=== PATIENT | female | born 1975 | race African-American/Black ===

== ENCOUNTER 2017-01-22 09:56 | Emergency (ER) | payer OTHER ==
[~2017-01-22] VITALS: Ht 161.3 cm; Wt 83.9 kg
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
== END 2017-01-22 12:54 | disposition home or self-care (01) ==
LOC: CED 09:56
DX: S16.1XXA Strain of muscle, fascia and tendon at neck level, initial encounter (principal); S00.93XA Contusion of unspecified part of head, initial encounter; I10 Essential (primary) hypertension; F17.200 Nicotine dependence, unspecified, uncomplicated; V49.40XA Driver injured in collision with unspecified motor vehicles in traffic accident, initial encounter; Y92.488 Other paved roadways as the place of occurrence of the external cause
CPT/HCPCS: 70450; 72125; 99285

== ENCOUNTER → 2017-03-22 | Outpatient (CLI) | payer OTHER ==
--- NOTE | ~2017-03-22 | MY29 ---
[facility] A Service of [facility] RADIOLOGY TEXT RESULTS PATIENT: SHAY ROJAS LOCATION: [facility] : 71 UNIT #: [id number] AGE: [address]: Cynthia Churchill MD SEX: F ORDER DR: [id number] [id number] [facility] [place], [place] [address] [id number] O MR#: [id number] Acc #: [id number] NAME: SHAY ROJAS : 1975 SEX: F STUDY DATE/TIME: 03/22/2017 14:14 UNIT: [facility] ROOM: STUDY DESCRIPTION: MY ALIYA SCREENING W/ CAD BILAT Attending Physician: Cynthia Churchill M.D. Ordering Physician: Cynthia Churchill M.D. Primary Care Physician: Cynthia Churchill M.D. MEDICAL IMAGING REPORT This report is preliminary unless electronic signature is present EXAM Bilateral digital screening mammogram with CAD, 03/22/2017. INDICATIONS 42-year-old female for routine screening. No reported problems. No personal or family history of breast cancer. No surgeries. TECHNIQUE CC and MLO views of the breasts were obtained and reviewed with an FDA approved CAD device. No comparisons. This is her baseline study. FINDINGS Breast parenchyma is composed of scattered fibroglandular densities. The pattern is symmetric. There is no dominant nodule, mass or suspicious clustered microcalcifications. Benign intramammary nodes anterior to the pectoralis muscle incidentally noted, both of which have fatty malini. IMPRESSION 1. Negative baseline screening mammogram, 1 followup recommended. Patients over the age of 40 are entered into a reminder system with target due date for the next mammogram. A result letter will also be sent to the patient. BIRADS: 1 Negative. Dictated by... Oscar Bone M.D. THIS IS AN ELECTRONICALLY VERIFIED REPORT Oscar Bone M.D. at 03/23/2017 8:29 AM XUAN/camila [facility] A Service of [facility] RADIOLOGY TEXT RESULTS PATIENT: SHAY ROJAS LOCATION: [facility] : 71 UNIT #: [id number] AGE: [address]: Cynthia Churchill MD SEX: F ORDER DR: TD: 03/23/2017 07:08 JOB #: [id number] MEDICAL IMAGING REPORT Page 1 of 1 COPY
== END | disposition home or self-care (01) ==
LOC: CWCC 13:31
DX: Z12.31 Encounter for screening mammogram for malignant neoplasm of breast (principal)
CPT/HCPCS: G0202